=== PATIENT | male | born 1955 | race Caucasian/White ===

== ENCOUNTER 2020-07-31 19:11 | Emergency (ER) | payer MEDICAID ==
[~2020-07-31] VITALS: Ht 175.3 cm; Wt 68.0 kg
[2020-07-31] MEDS ORDERED: IBUPROFEN 600MG TABLET PO STA (19:43)
[2020-07-31] MEDS ORDERED: SODIUM CHLORIDE 0.9% 1,000 ML IV ONE (19:45)
[2020-07-31 19:50] VITALS: BP 136/86
== END 2020-07-31 20:24 | disposition left against medical advice (07) ==
LOC: ER 19:11
DX: M79.672 Pain in left foot (principal); M79.671 Pain in right foot; I10 Essential (primary) hypertension; F31.9 Bipolar disorder, unspecified; F10.10 Alcohol abuse, uncomplicated; Y90.9 Presence of alcohol in blood, level not specified; F15.10 Other stimulant abuse, uncomplicated; Z89.422 Acquired absence of other left toe(s)
CPT/HCPCS: 99283; J7030